=== PATIENT | female | born 1960 | race Caucasian/White ===

== ENCOUNTER 2022-03-15 07:07 | Outpatient (CLI) | payer OTHER, SELFPAY ==
--- NOTE | 2022-03-15 07:15 | MR_ITS ---
[address] [address] Phone:?[phone] Fax:?[phone] Referring Physician Information: Efrain Diaz M.D. [address] [facility] [address] Phone:?[phone] Fax:?[phone] Patient:?Priscilla Hayden D.O.B:?1960 Sex:?Female Phone:?[phone] [facility] MRN:?[id number] Exam Date:?03/15/2022 ? EXAM: MRI EXAMINATION OF THE LEFT WRIST WITHOUT CONTRAST CLINICAL INFORMATION: Female, 61 years old, with wrist pain after fall injury INDICATION: Injury, tendinitis, TFCC tear PRIOR SURGERY: None reported. PLAIN FILMS: None available. COMPARISONS: No prior MRIs available. TECHNICAL INFORMATION: Using a 1.5T MR scanner and a localizing surface coil: coronals: PD, T2, STIR sagittals: PD, T2 axials: PD, T2 SEDATION: None CONTRAST: None FINDINGS: Bones and joints: No stress/occult fracture, bone marrow edema, or carpal bone osteonecrosis. No discrete osteochondral lesion. Triangular fibrocartilage: The volar and dorsal radioulnar ligaments appear intact, however the central disc is irregular and attenuated (coronal series 5 image 12). This peripheral foveal and styloid attachments are heterogeneous and attenuated. Moderate to large size TFCC joint effusion with synovitis. Ligaments: No evidence for scapholunate or lunotriquetral interosseous ligament disruption. Interosseous distances between the scaphoid, lunate and triquetrum appear uniform and normal. Alignment:?Type I lunate. Neutral ulnar variance. Tendons: The flexor tendons are normal in caliber and signal intensity throughout their course including within the carpal tunnel. The tendons within the 1st-6th extensor compartments are intact. No significant tendinopathy, and without tenosynovitis, tendon split or tendon disruption. Neurovascular structures: The median nerve appears normal in caliber and signal intensity throughout its course including within the carpal tunnel. The ulnar nerve is intact and normal in appearance. No evidence for intrinsic/extrinsic mass within Guyon's canal. Soft tissues: No dorsal or other soft tissue ganglion cyst. No synovitis. IMPRESSION: 1. Irregular and attenuated appearance of the central disc of the TFCC, without well-defined full-thickness perforation on this non-arthrographic exam. The volar and dorsal radioulnar ligaments are intact. Sprain/partial tear of the peripheral foveal and ulnar styloid attachments. Moderate to large sized TFCC joint effusion with synovitis. 2. Intact osseous structures without stress reaction/fracture. 3. Intact scapholunate and lunotriquetral ligament. 4. No dorsal ganglion cyst or synovitis. 5. Intact flexor and extensor tendons without tendinopathy, tear, or tenosynovitis. KME Electronically signed on 03/19/2022 8:49:00 AM by Marleni Thurston M.D.
== END 2022-03-15 07:08 | disposition home or self-care (01) ==
PROVIDERS: PCP Family Medicine; Visit Provider Family Medicine
DX: M25.532 Pain in left wrist (principal); S63.592A Other specified sprain of left wrist, initial encounter; S69.92XD Unspecified injury of left wrist, hand and finger(s), subsequent encounter
CPT/HCPCS: 73221

== ENCOUNTER 2025-03-22 08:30 | Day surgery (SDC) | payer BC, SELFPAY ==
[2025-03-22] VITALS (9 sets, daily range): BP systolic 115–155; BP diastolic 73–102; PULSE 73–89; RESP 14–16; TEMP 36.3–37.6; O2SAT 94–100; BMI 24.5
--- NOTE | 2025-03-22 09:07 | P.ORPRC_ITS ---
Procedure Note Date of procedure: 03/22/25 Procedure: PREOPERATIVE DIAGNOSES: 1. Right ulna shaft fracture, closed, displaced POSTOPERATIVE DIAGNOSES: 1. Right ulna shaft fracture, closed, displaced NAME OF OPERATION: 1. Right ulna open reduction internal fixation SURGEON: Foreign Kee MD [facility] REPRESENTATIVE: Kaye Dunlap; Sheri Mosley P.A.-C. - An physical therapy assistant was critical for this case to aid in patient positioning, limb manipulation, tissue retraction, closure, and splinting. ANESTHESIA: Monitored anesthesia care with axillary nerve block IMPLANTS: Arthrex 8-hole 2.7 mm LCP plate with 2.7 mm locking and nonlocking screws. TOURNIQUET: 42 minutes at 225 mmHg. INDICATIONS: The patient is a pleasant, 64-year-old female who sustained a right wrist/forearm injury after her dog got into an altercation with another dog. Following the injury she developed pain and swelling and was diagnosed with a displaced ulna shaft fracture. Given these findings, surgery was recommended to stabilize the fracture and allow for healing in a more anatomic position. Prior to surgery, the risks and benefits of the procedure were discussed with patient, all questions were answered, and informed consent was obtained. FINDINGS: Closed, displaced, transverse fracture of the distal ulna shaft. Two small puncture wounds in the forearm which did not communicate with the fracture site. PROCEDURE: Patient was seen preoperatively, surgical consent was obtained, and the operative extremity was marked. And axillary nerve block was performed by anesthesia staff. The patient was then brought to the operating room and placed supine on the operating table. Induction of anesthesia was achieved and patient was provided with 1 g IV Ancef preoperatively for prophylaxis. The operative extremity was prepped and draped in usual sterile fashion . A surgical time-out was performed confirming patient identity, surgical site, and surgical procedure. The operative extremity was exsanguinated and the tourniquet inflated to 225 mmHg. A longitudinal incision was made along the lateral border of the ulna centered over the fracture site. Blunt dissection was used to dissect through subcutaneous tissues with care taken to protect the dorsal sensory branch of the ulnar nerve. The interval between the flexor carpi ulnaris and extensor carpi ulnaris muscles was developed. The anterior aspect of the ulna was subperiosteally exposed. The fracture was identified and cleared of interposed periosteum and fracture hematoma. Fracture site was irrigated with normal saline. Anatomic reduction of the fracture was performed and held provisionally with a clamp. An Arthrex 8 hole 2.7 mm LCP plate was selected and contoured to fit on the anterior aspect of the ulna. Plate was then provisionally held in place with a BB tacks. Fluoroscopic images confirmed anatomic reduction of the fracture and appropriate placement of the plate. The plate was then fixed distally with a 2.7 mm bicortical locking screw and proximally with a 2.7 mm bicortical nonlocking screw, which was placed in compression. Two additional bicortical 2.7 mm locking screws were placed distal to the fracture site, and 2 additional bicortical 2.7 mm locking screws were placed proximal to the fracture site. Fluoroscopic images in AP and lateral planes confirmed anatomic reduction of the fracture with good placement of the plate and screws. After fixation, the DRUJ was confirmed to be stable. Fracture remained anatomically reduced with wrist flexion/extension and forearm pronation/supination. Wounds were irrigated with normal saline. The deep fascia was repaired over the plate with 2-0 Vicryl [id number] interrupted sutures. Tourniquet was released and hemostasis was achieved electrocautery. Wound was again irrigated normal saline. Skin was closed with 2-0 Stratafix followed by 4-0 Monocryl subcuticular and Dermabond. Sterile dressing was then applied. The patient was awoken from anesthesia and transferred to PACU in stable condition. PLAN: 1. Elevate operative extremity. 2. Ice, acetaminophen, or ibuprofen PRN. 3. Oxycodone as needed for more severe pain 4. No lifting, pushing or pulling with right upper extremity. 5. Follow up in Orthopedic Clinic in 10-14 days for wound check. 6. We will initiate occupational therapy after 1st postoperative visit.
--- NOTE | 2025-03-22 09:07 | W.PM.H&PU ---
History & Physical Update History & Physical Update H&P Reviewed and patient assessed: No changes noted
[2025-03-22] MEDS: LACTATED RINGERS 1000 ML 1,000 ML 100 ML IV (09:38)
[2025-03-22] MEDS: SODIUM CHLORIDE 0.9 % (FLUSH) 10 ML SYRINGE IVF (09:38)
--- NOTE | 2025-03-22 10:47 | SUR.PREOP ---
TIME?OUT:?1048 PT/RN/MDA?VERIFICATION?OF?SURGICAL?SITE-RIGHT ULNA,NERVE BLOCK,?PROCEDURE,?AND?CONSENT OBTAINED?PRIOR?TO?INVASIVE?PROCEDURE.
[2025-03-22] MEDS: MIDAZOLAM HCL 1 MG/ML inj IVP (10:48)
--- NOTE | 2025-03-22 11:00 | CRLHL7_ITS ---
For Patients: As a result of the Cures Act, medical imaging exams and procedure reports are released immediately into your electronic medical record. You may view this report before your referring provider. If you have questions, please contact your health care provider. Indication: Right ulna ORIF Technique: Two fluoroscopic images of the right distal forearm. Fluoroscopic time 22.4 seconds. IMPRESSION: Fluoroscopic guidance for open reduction internal fixation distal ulnar fracture. Dictated by Rosendo Arrington MD @ 03/22/2025 3:31:00 PM (Electronically Signed)
--- NOTE | 2025-03-22 11:14 | P.NB_ITS ---
Nerve Block Nerve Block Time Seen by Provider: 10:50 Date Seen: 03/22/25 Type of block requested by surgeon for post-operative analgesia: axillary Side: right Time out performed: Yes Verification of patient name: Yes Verification of date of : Yes Site marking: site marked Name of person performing procedure: Usman Continuous monitoring Was continuous monitoring of O2 sat, B/P, satellite project site monitor, recorded every 15 minutes?: Yes Procedure Checklist: sterile prep, needles and gloves Ultrasound guided. Images saved: Yes Medications given in 5ml increments after negative aspiration: Ropivicaine %: 0.5 mL: 20 Needle gauge: 22 Patient tolerated procedure well: Yes Additional comments: Needle noted adjacent to nerve Block Charges Block Charge (with Pro Fee): Brachial Plexus Use of Ultrasound Machine for Block: Yes- US Guidance/pain block
--- NOTE | 2025-03-22 11:15 | P.ANES_ITS ---
Anesthesia Charges Start Date/Time Anesthesia Start Date: 03/22/25 Anesthesia Start Time: 10:59 Stop Date/Time Anesthesia Stop Date: 03/22/25 Anesthesia Stop Time: 12:40 Coding CPT Codes CPT Codes: ANESTH LOWER ARM SURGERY - 20181 ([id number]) P2 - PATIENT W/MILD SYST DISEASE, QK - SERVICES MANAGER 2-4 CNCRNT ANES PROC, QX - JACQUARD LOOM WEAVER SVC W/ MD MED DIRECTION
--- NOTE | 2025-03-22 11:15 | W.ANESCHARGE ---
Anesthesia Charges Start Date/Time Anesthesia Start Date: 03/22/25 Anesthesia Start Time: 10:59 Stop Date/Time Anesthesia Stop Date: 03/22/25 Anesthesia Stop Time: 12:40 Coding CPT Codes CPT Codes: ANESTH LOWER ARM SURGERY - 53841 ([id number]) P2 - PATIENT W/MILD SYST DISEASE, QK - SENIOR PAYROLL MANAGER 2-4 CNCRNT ANES PROC, QX - PHYSICS TECHNICIAN SVC W/ MD MED DIRECTION
--- NOTE | 2025-03-22 12:43 | P.ANES_ITS ---
Anesthesia Charges Start Date/Time Anesthesia Start Date: 03/22/25 Anesthesia Start Time: 10:59 Stop Date/Time Anesthesia Stop Date: 03/22/25 Anesthesia Stop Time: 12:40 Coding CPT Codes CPT Codes: ANESTH LOWER ARM SURGERY - 44035 ([id number]) P2 - PATIENT W/MILD SYST DISEASE, QK - AIR CONDITIONING MECHANIC 2-4 CNCRNT ANES PROC, QX - LEGAL MEDIATOR SVC W/ MD MED DIRECTION
--- NOTE | 2025-03-22 12:43 | W.ANESCHARGE ---
Anesthesia Charges Start Date/Time Anesthesia Start Date: 03/22/25 Anesthesia Start Time: 10:59 Stop Date/Time Anesthesia Stop Date: 03/22/25 Anesthesia Stop Time: 12:40 Coding CPT Codes CPT Codes: ANESTH LOWER ARM SURGERY - 32627 ([id number]) P2 - PATIENT W/MILD SYST DISEASE, QK - GERIATRIC SOCIAL WORKER 2-4 CNCRNT ANES PROC, QX - BICYCLE INSPECTOR SVC W/ MD MED DIRECTION
--- NOTE | 2025-03-22 12:53 | SUR.PHASEII ---
Pt walking to Bathroom. Voided. Ambulated back to bed.
== END 2025-03-22 13:52 | disposition home or self-care (01) ==
PROVIDERS: PCP Family Medicine; Visit Provider Orthopaedic Surgery
PROC: (CPT 25575; principal; 2025-03-22 11:00)
DX: S52.221A Displaced transverse fracture of shaft of right ulna, initial encounter for closed fracture (principal); G89.18 Other acute postprocedural pain
CPT/HCPCS: 25545; 01830; 64415; 73110; 76942; C1713; J0690; J1100; J2250; J2371; J2405; J2704; J2795; J3010; J3490; J7120

== ENCOUNTER 2025-05-21 06:47 | Day surgery (SDC) | payer BC, SELFPAY ==
[2025-05-21] VITALS (7 sets, daily range): BP systolic 110–140; BP diastolic 81–95; PULSE 72–85; RESP 14–16; TEMP 36.4–36.6; O2SAT 97–99; BMI 24.6
--- NOTE | 2025-05-21 07:12 | W.PM.H&PU ---
History & Physical Update History & Physical Update H&P Reviewed and patient assessed: No changes noted
[2025-05-21] MEDS: LACTATED RINGERS 1000 ML 1,000 ML 100 ML IV (07:20)
[2025-05-21] MEDS: SODIUM CHLORIDE 0.9 % (FLUSH) 10 ML SYRINGE IVF (07:20)
--- NOTE | 2025-05-21 07:23 | PM.ORPRC ---
Procedure Note Date of procedure: 05/21/25 Procedure: PREOPERATIVE DIAGNOSES: 1. Left distal ulna fracture, closed, displaced POSTOPERATIVE DIAGNOSES: 1. Left distal ulna fracture, closed, displaced NAME OF OPERATION: 1. Left distal ulna open reduction internal fixation SURGEON: Foreign Kee MD DIRECTOR CLINICAL DATA: Rosette Parekh P.A.-C. - An custody assistant was critical for this case to aid in patient positioning, limb manipulation, tissue retraction, wound closure, and splinting. ANESTHESIA: Monitored anesthesia care with axillary nerve block ESTIMATED BLOOD LOSS: 10 mL COMPLICATIONS: Propagation of fracture in 2 proximal screw holes during fixation, which required placement of a 2 point mm lag screw. IMPLANTS: Acumed Acu-Loc 2 Volar Distal Ulna Plate, 2.3 mm distal locking screws, 3.5 mm proximal locking screws, and 2.0 mm lag screw TOURNIQUET: 96 minutes at 225 mmHg. PROVIDER OPERATED C-ARM: C-arm fluoroscopy operated by Dr. Luciano Kee for confirmation of fracture reduction and correct plate and screw placement. 61 C-arm spot images were obtained. Fluoroscopy time was 54 seconds. INDICATIONS: The patient is a pleasant, 64-year-old female who sustained a left wrist injury following a ground level fall in which she hit her wrist on a planter. Following the injury, she developed pain and swelling and was diagnosed with a displaced distal ulna fracture. Given these findings, surgery was recommended to stabilize the fracture and allow for healing in a more anatomic position. Prior to surgery, the risks and benefits of the procedure were discussed with patient, all questions were answered, and informed consent was obtained. FINDINGS: Closed, displaced, significantly comminuted, unstable fracture of the distal ulna metaphysis. PROCEDURE: Patient was seen preoperatively, surgical consent was obtained, and the operative extremity was marked. And axillary nerve block was performed by anesthesia staff. The patient was then brought to the operating room and placed supine on the operating table. Induction of anesthesia was achieved and patient was provided with 1 g IV Ancef preoperatively for prophylaxis. The operative extremity was prepped and draped in usual sterile fashion . A surgical time-out was performed confirming patient identity, surgical site, and surgical procedure. The operative extremity was exsanguinated and the tourniquet inflated to 225 mmHg. A longitudinal incision was made along the lateral border of the ulna centered over the fracture site. Blunt dissection was used to dissect through subcutaneous tissues with care taken to protect the dorsal sensory branch of the ulnar nerve. The interval between the flexor carpi ulnaris and extensor carpi ulnaris muscles was developed. The anterior aspect of the ulna was subperiosteally exposed and pronator quadratus was retracted radially. The fracture was identified and cleared of interposed periosteum and fracture hematoma. Fracture site was irrigated with normal saline. Fracture was noted to be significantly comminuted and unstable. Temporary reduction was performed and held in place with 2 crossing K-wires. After satisfactory reduction was maintained, an Acumed volar distal ulnar plate was selected and provisionally fixed to the volar aspect of the distal radius with K-wires with care taken to keep plate proximal to the sigmoid notch. Fluoroscopic imaging obtained in multiple planes confirmed satisfactory reduction and plate placement. The plate was then fixed proximally with a 3.5 mm nonlocking shaft screw in the oblong hole. Plate was then fixed distally with four 2.3 mm distal locking screws. K-wires were all removed. Plate was then fixed proximally with 2 additional 3.5 mm locking screws. While placing one of the proximal locking screws, the fracture was noted to extend, propagating into the oblong hole screw hole. This nonlocking screw was now loose and was subsequently removed. Fluoroscopic images were obtained which showed no displacement of this longitudinal fracture. It was subsequently fixed with a 2.0 mm lag screw. After fixation, the wrist was passively moved. There was full wrist flexion/extension and forearm pronation/supination, without any impingement on the plate. The DRUJ was confirmed to be stable. Final fluoroscopic confirmed satisfactory reduction and placement of plate and screws. Wounds were then irrigated with normal saline. The pronator quadratus was repaired over the plate with 0 Vicryl [id number] interrupted sutures. Tourniquet was released and hemostasis was achieved electrocautery. Wound was again irrigated normal saline. Skin was closed with 2-0 Vicryl subcutaneous stitches followed by 3-0 Monocryl subcuticular stitches, and Dermabond. Sterile dressing was then applied followed by the application of a short-arm dorsal volar splint. The patient was awoken from anesthesia and transferred to PACU in stable condition. PLAN: 1. Ice and elevation for pain and swelling. 2. Acetaminophen as needed for pain control. 3. Oxycodone as needed for more severe pain 4. No lifting, pushing or pulling with right upper extremity. Sling as needed for comfort 5. Follow up in Orthopedic Clinic in 10-14 days for wound check. -will obtain repeat x-rays of the left wrist and convert to short-arm cast at that visit. -continue immobilization in short-arm cast until 6 weeks postoperatively. 6. Follow-up with Dr. [facility] 6 weeks postoperatively. We will initiate occupational therapy after a that visit.
[2025-05-21] MEDS: MIDAZOLAM HCL 1 MG/ML inj IVP (07:30)
--- NOTE | 2025-05-21 07:31 | SUR.PREOP ---
TIME?OUT:?0728 PT/RN/MDA?VERIFICATION?OF?SURGICAL?SITE-LEFT ULNA,?PROCEDURE,?NERVE BLOCK, AND?CONSENT OBTAINED?PRIOR?TO?INVASIVE?PROCEDURE.
--- NOTE | 2025-05-21 10:20 | P.NB_ITS ---
Nerve Block Nerve Block Time Seen by Provider: 07:28 Date Seen: 05/21/25 Type of block requested by surgeon for post-operative analgesia: axillary Side: left Time out performed: Yes Verification of patient name: Yes Verification of date of : Yes Site marking: site marked Name of person performing procedure: Usman Continuous monitoring Was continuous monitoring of O2 sat, B/P, school lunch monitor, recorded every 15 minutes?: Yes Procedure Checklist: sterile prep, needles and gloves Ultrasound guided. Images saved: Yes Medications given in 5ml increments after negative aspiration: Ropivicaine %: 0.5 mL: 30 Needle gauge: 22 Patient tolerated procedure well: Yes Additional comments: Needle noted adjacent to nerve Block Charges Block Charge (with Pro Fee): Brachial Plexus Use of Ultrasound Machine for Block: Yes- US Guidance/pain block
--- NOTE | 2025-05-21 10:21 | P.ANES_ITS ---
Anesthesia Charges Start Date/Time Anesthesia Start Date: 05/21/25 Anesthesia Start Time: 07:38 Stop Date/Time Anesthesia Stop Date: 05/21/25 Anesthesia Stop Time: 10:20 Coding CPT Codes CPT Codes: ANESTH LOWER ARM SURGERY - 78445 ([id number]) P2 - PATIENT W/MILD SYST DISEASE, QK - LUMBER PILER 2-4 CNCRNT ANES PROC, QX - ETCHED CIRCUIT PROCESSOR SVC W/ MD MED DIRECTION
--- NOTE | 2025-05-21 10:21 | W.ANESCHARGE ---
Anesthesia Charges Start Date/Time Anesthesia Start Date: 05/21/25 Anesthesia Start Time: 07:38 Stop Date/Time Anesthesia Stop Date: 05/21/25 Anesthesia Stop Time: 10:20 Coding CPT Codes CPT Codes: ANESTH LOWER ARM SURGERY - 90545 ([id number]) P2 - PATIENT W/MILD SYST DISEASE, QK - COMPUTER ENGINEERING PROFESSOR 2-4 CNCRNT ANES PROC, QX - VEHICLE BODY SANDER SVC W/ MD MED DIRECTION
--- NOTE | 2025-05-21 10:24 | P.ANES_ITS ---
Anesthesia Charges Start Date/Time Anesthesia Start Date: 05/21/25 Anesthesia Start Time: 07:38 Stop Date/Time Anesthesia Stop Date: 05/21/25 Anesthesia Stop Time: 10:20 Coding CPT Codes CPT Codes: ANESTH LOWER ARM SURGERY - 99540 ([id number]) P2 - PATIENT W/MILD SYST DISEASE, QK - TELEVISION NEWS VIDEO EDITOR 2-4 CNCRNT ANES PROC
--- NOTE | 2025-05-21 10:24 | W.ANESCHARGE ---
Anesthesia Charges Start Date/Time Anesthesia Start Date: 05/21/25 Anesthesia Start Time: 07:38 Stop Date/Time Anesthesia Stop Date: 05/21/25 Anesthesia Stop Time: 10:20 Coding CPT Codes CPT Codes: ANESTH LOWER ARM SURGERY - 80398 ([id number]) P2 - PATIENT W/MILD SYST DISEASE, QK - INFRASTRUCTURE DIRECTOR 2-4 CNCRNT ANES PROC
== END 2025-05-21 11:48 | disposition home or self-care (01) ==
LOC: OR 06:48
PROVIDERS: PCP Family Medicine; Visit Provider Orthopaedic Surgery
PROC: (CPT 25575; principal; 2025-05-21 08:00)
DX: S52.602A Unspecified fracture of lower end of left ulna, initial encounter for closed fracture (principal); G89.18 Other acute postprocedural pain
CPT/HCPCS: 25545; 01830; 64415; 73110; 76000; 76942; C1713; J0690; J2250; J2405; J2704; J2795; J3010; J7120